=== PATIENT | female | born 1975 | race African-American/Black ===

== ENCOUNTER → 2016-08-24 | Outpatient (CLI) | payer OTHER ==
--- NOTE | 2016-08-24 13:43 | RAD ---
Indication chronic back pain. AP and lateral views of the lumbar spine were obtained as well as a coned view targeted to the lumbosacral junction. There are degenerative changes at L5-S1. There is disc space narrowing at this level with some associated vacuum disc phenomenon and degenerative endplate changes. No additional finding is seen. Vertebral height and alignment are well maintained. IMPRESSION: Degenerative changes predominantly centered at L5-S1. No acute finding seen
== END | disposition home or self-care (01) ==
LOC: RAD 13:05
PROVIDERS: ATTEND Surgery
DX: M47.897 Other spondylosis, lumbosacral region (principal); G89.29 Other chronic pain
CPT/HCPCS: 72100

== ENCOUNTER → 2016-09-01 | Outpatient (CLI) | payer OTHER ==
--- NOTE | 2016-09-01 13:13 | RAD ---
AP standing knees, single view, 09/01/2016: History: Knee pain with limited range of motion AP standing views of both knees demonstrate mild narrowing of the medial compartment of the right knee joint with mild marginal spurring. The left knee joint space is well-preserved. There is a smooth sclerotic focus in the proximal fibula suggesting an old healed fibrous cortical defect or large bone island. No fracture or dislocation is identified on this limited exam.
--- NOTE | 2016-09-01 13:24 | RAD ---
CT lumbar spine without contrast History: Pain, degenerative disc disease at L5-S1. Comparison: None. Technique: Noncontrast helical CT of the lumbar spine was performed. Axial, sagittal, and coronal reconstructions were obtained. One or more of the following individualized dose reduction techniques were utilized for the study: Automated exposure control Adjustment of mA and/or kV according to patient's size Use of iterative reconstruction technique. Findings: Evaluation of spinal contents is limited by lack of intrathecal contrast. Alignment of the lumbar spine appears anatomic. There is no evidence of acute fracture or acute malalignment. No prevertebral soft tissue swelling is identified. There are 5 lumbar type vertebral bodies. L2-3 level demonstrates mild buckling ligamentum flavum and mild bilateral facet hypertrophy. L3-4 level demonstrates mild bilateral facet hypertrophy and mild buckling ligamentum flavum. L4-5 level demonstrates a small central posterior disc osteophyte complex. There is mild bilateral facet hypertrophy and mild buckling of ligamentum flavum. Minimal bilateral neural foraminal narrowing is seen. Degenerative changes combined with mild enlargement of posterior epidural fat create mild central spinal canal narrowing with the AP diameter of the thecal sac estimated at 9 mm. L5-S1 level demonstrates loss of disc height and vacuum disc phenomenon. There is a posterior disc osteophyte complex asymmetric to the left. There is mild bilateral facet hypertrophy and mild buckling ligamentum flavum. There is mild right and mild-moderate left neural foraminal narrowing. Degenerative changes combined with enlargement of the posterior epidural fat create mild spinal canal narrowing with AP diameter of the thecal sac estimated at 9 mm. Impression: 1. Degenerative changes, most evident at L4-5 and L5-S1 where there is mild spinal canal narrowing. 2. Mild-moderate left and mild right neural foraminal narrowing is seen at L5-S1. Lesser neural foraminal narrowing is seen at L4-5.
== END | disposition home or self-care (01) ==
LOC: CT 12:06
PROVIDERS: ATTEND Family Medicine
DX: M51.37 Other intervertebral disc degeneration, lumbosacral region (principal); M25.561 Pain in right knee; M25.562 Pain in left knee
CPT/HCPCS: 72131; 73565

== ENCOUNTER 2016-11-07 19:32 | Emergency (ER) | payer OTHER ==
[~2016-11-07] VITALS: Ht 167.6 cm; Wt 88.5 kg
[2016-11-07 19:41] VITALS: BP 134/74
--- NOTE | 2016-11-07 20:09 | PHYS DOC ---
Past Medical History Past Medical History: Other Additional Past Medical Histor: CHRONIC BACK PAIN, CHRONIC BILATERAL KNEE PAIN Past Surgical History: , Other Additional Past Surgical Histo: R HAND SX Alcohol Use: None Drug Use: Marijuana Adult General Chief Complaint Chief Complaint: BACK PAIN - NO INJURY HPI HPI Patient is a 41 year old female with history of chronic sciatic pain who presents today with moderate chronic bilateral low back pain radiating to the right knee. She states she has history of chronic knee pain bilaterally. Patient herself states they've done bilateral knee x-rays which were negative by her PCP. She states the PCP has done CTs of her lumbar spine which were noted for sciatica and lumbar stenosis. Denies any loss of bowel or bladder function. She appears and stop intoxicated. She is very slow in her speech. As well speak i asked patient if she has any injury. Patient states she has no injury. I stated if there is no injury we could do x-rays to make sure nothing acute is going on but xrays are not indicated if no injury is available. Patient states she has no injury and we refusing to care for her. Informed patient we are not refusing to care for her by asking all these questions. Informed her the questions are to help figure out what we can do for he eg. tests or pain management. Informed her if her own doctor has done x-rays of her knees and CT of her back and there was nothing acute we can help her with pain. Informed her at this point we can help her with the pain. She stood up stating she is living with not helping. I asked her if she would like something for pain. She states she is already taking oxycodone 10 mg/325 with no relief. She states she is here to see the who is on the cardiac floor. Informed patient its 8:05 PM, informed her visiting hours will be done by 8:30. Informed that can help her with her pain but she has to bring a sprinkler truck driver for narcotics because she came to the ED by herself. She states she is going to make a couple calls to see if anyone can pick her up. She did call the father who did not agree to pick her up. Patient stated "forget about the pain medicine". Informed patient that we can give her a steroid pain shot or Toradol and see if this helps. Patient refused, she states the last time she took steroids she gained 25 pounds and she is not ready for that. Informed her I can give her a shot of Toradol. She is up and walking in the room stating she is going to the cardiac floor to see her"baby" security had been called and was standing by for a while. Patient seemed to calm down as soon as she saw security. PCP Dr. Win Review of Systems Review of Systems Constitutional: Denies fever or chills [] Eyes: Denies change in visual acuity, redness, or eye pain [] : Denies dysuria or hematuria [] Musculoskeletal: chronic back pain and knee pain Integument: Denies rash or skin lesions [] Neurologic: Denies headache, focal weakness or sensory changes [] Endocrine: Denies polyuria or polydipsia [] Allergies Allergies Allergies Coded Allergies Type Severity Reaction Last Updated Verified Penicillins Allergy Unknown Unknown 07/28/14 No Physical Exam Physical Exam Constitutional: Well developed, well nourished, no acute distress, non-toxic appearance. [] HENT: Normocephalic, atraumatic, bilateral external ears normal, oropharynx moist, no oral exudates, nose normal. [] Skin: Warm, dry, no erythema, no rash. [] Back: Exam not done patient up passing around the room. Extremities: No tenderness, no cyanosis, no clubbing, ROM intact, no edema. [] Neurologic: Alert and oriented X 3, normal motor function, normal sensory function, no focal deficits noted. [] Psychologic: Affect normal, judgement normal, mood normal. [] Current Patient Data Vital Signs Vital Signs Date Time Temp Pulse Resp B/P (MAP) Pulse Ox O2 Delivery O2 Flow Rate FiO2 11/07/16 19:41 99.0 91 16 98 Room Air 99.0 EKG EKG [] Radiology/Procedures Radiology/Procedures [] Course & Med Decision Making Course & Med Decision Making Pertinent Labs and Imaging studies reviewed. (See chart for details) Please see history of present illness for all the information. Dragon Disclaimer Dragon Disclaimer This electronic medical record was generated, in whole or in part, using a voice recognition dictation system. Departure Departure Impression: Primary Impression: Back pain Additional Impressions: Sciatica of right side Sciatica of left side Chronic knee pain Disposition: 01 HOME, SELF-CARE Condition: STABLE Referrals: WINNIE WIN MD (PCP) Problem Qualifiers Primary Impression: Back pain Back pain location: low back pain Chronicity: chronic Back pain laterality : right Sciatica presence: with sciatica Sciatica laterality: bilateral sciatica Qualified Codes: M54.41 - Lumbago with sciatica, right side; M54.42 - Lumbago with sciatica, left side; G89.29 - Other chronic pain Additional Impressions: Chronic knee pain Laterality: bilateral Qualified Codes: M25.561 - Pain in right knee; M25.562 - Pain in left knee; G89.29 - Other chronic pain TAI CONKLIN APRN Nov 07, 2016 20:09
== END 2016-11-07 20:12 | disposition home or self-care (01) ==
LOC: ER 19:32
DX: G89.29 Other chronic pain (principal); M54.41 Lumbago with sciatica, right side; M54.42 Lumbago with sciatica, left side; M25.561 Pain in right knee; F12.10 Cannabis abuse, uncomplicated; M48.06 Spinal stenosis, lumbar region; Z98.890 Other specified postprocedural states; Z88.0 Allergy status to penicillin
CPT/HCPCS: 99281

== ENCOUNTER 2016-11-10 11:30 | Emergency (ER) | payer OTHER ==
[~2016-11-10] VITALS: Ht 167.6 cm; Wt 88.5 kg
[2016-11-10 11:45] VITALS: BP 135/78
--- NOTE | 2016-11-10 12:10 | PHYS DOC ---
Past Medical History Past Medical History: Other Additional Past Medical Histor: CHRONIC BACK PAIN, CHRONIC BILATERAL KNEE PAIN Past Surgical History: , Other Additional Past Surgical Histo: R HAND SX Alcohol Use: None Drug Use: Marijuana Adult General Chief Complaint Chief Complaint: LOWER EXT PAIN HPI HPI Patient is a 41 year old female presents to the emergency department stating that she has having left lower back pain that radiates down into her knee area. Patient was seen here on November 07 for the same discomfort. Patient denies any trauma or injuries. Patient states that she has hardly able to walk. She states that she does have a prescription of oxycodone 10 mg in which is not helping with her pain or discomfort. Patient states that the pain radiates from her right left lower back although way down to her knee area. Patient states that the emergency department is not helping her with her pain and discomfort. She does state she has chronic back pain. Patient states that she does not have a primary care physician that she has seen. I explained that she gets her oxycodone from a primary care physician in which she states that she does not have a primary care physician in that is not where she gets her oxycodone. Therefore I asked the patient then issue buying them off the streets. Patient states no eye do not by them off the street you don't have any idea how I get my pain medications. Patient was offered ibuprofen 800 mg and Flexeril here in the emergency department to help with muscle spasms. Patient states I have those prescriptions at home however she had not provided me with this information when asked what she is taken for the pain and discomfort. Patient continues to state that she believes we think she is drug-seeking. I explained to patient that we treat back pain the same with nonsteroidal anti- inflammatories and muscle relaxers with a possibility of steroids as well. Patient continues to state that she does not feel that she is being treated appropriately she has therefore gotten up off of the chair in the room and proceeds to walk around the room. She then proceeds to walk out the front door stating that we are not helping her and she does not understand why we cannot provide her with the medication that the provider on the fourth was going to give her. After looking back in the chart provider at that time was going to provide her with a shot of Toradol and steroids. Patient was able to ambulate out of the department with a good steady gait. Review of Systems Review of Systems Constitutional: Denies fever or chills [] Eyes: Denies change in visual acuity, redness, or eye pain [] HENT: Denies nasal congestion or sore throat [] Respiratory: Denies cough or shortness of breath [] Cardiovascular: No additional information not addressed in HPI [] GI: Denies abdominal pain, nausea, vomiting, bloody stools or diarrhea [] : Denies dysuria or hematuria [] Musculoskeletal: back pain denies joint pain [] Integument: Denies rash or skin lesions [] Neurologic: Denies headache, focal weakness or sensory changes [] Endocrine: Denies polyuria or polydipsia [] Allergies Allergies Allergies Coded Allergies Type Severity Reaction Last Updated Verified Penicillins Allergy Unknown Unknown 07/28/14 No Physical Exam Physical Exam Constitutional: Well developed, well nourished, no acute distress, non-toxic appearance. [] HENT: Normocephalic, atraumatic, bilateral external ears normal, oropharynx moist, no oral exudates, nose normal. [] Eyes: PERRLA, EOMI, conjunctiva normal, no discharge. [] Neck: Normal range of motion, no tenderness, supple, no stridor. [] Cardiovascular:Heart rate regular rhythm] Lungs & Thorax: no respiratory distress Skin: Warm, dry, no erythema, no rash. [] Back: No tenderness Extremities: No tenderness, no cyanosis, no clubbing, ROM intact, no edema. Peripheral pulses 2+, cap refill brisk < 2 seconds Neurologic: Alert and oriented X 3, normal motor function, normal sensory function, no focal deficits noted. [] Psychologic: Affect normal, judgement normal, mood normal. [] EKG EKG [] Radiology/Procedures Radiology/Procedures [] Course & Med Decision Making Course & Med Decision Making Pertinent Labs and Imaging studies reviewed. (See chart for details) Patient was offered medication in which she refuses stating she has taken them at home. Patient has then eloped from the department without further treatment being obtained. [] Dragon Disclaimer Dragon Disclaimer This electronic medical record was generated, in whole or in part, using a voice recognition dictation system. Departure Departure Impression: Primary Impression: Chronic back pain Additional Impression: Sciatica of right side Disposition: HOME, SELF-CARE Condition: STABLE Referrals: WINNIE WIN MD (PCP) Problem Qualifiers JHOAN SOLORZANO CERTIFIED PUBLIC ACCOUNTANT Nov 10, 2016 12:10
== END 2016-11-10 12:03 | disposition home or self-care (01) ==
LOC: ER 11:30
DX: G89.29 Other chronic pain (principal); M54.41 Lumbago with sciatica, right side; Z88.0 Allergy status to penicillin
CPT/HCPCS: 99281

== ENCOUNTER 2017-08-23 21:06 | Emergency (ER) | payer OTHER | END 2017-08-23 22:01 | disposition home or self-care (01) | LOC: ER 21:06 | DX: S80.02XA Contusion of left knee, initial encounter (principal); M54.42 Lumbago with sciatica, left side; G89.29 Other chronic pain; F12.10 Cannabis abuse, uncomplicated; Z88.0 Allergy status to penicillin; W22.03XA Walked into furniture, initial encounter; Y93.89 Activity, other specified; Y99.8 Other external cause status; Y92.89 Other specified places as the place of occurrence of the external cause | CPT/HCPCS: 73562; 99284 ==

== ENCOUNTER 2018-12-11 05:43 | Emergency (ER) | payer MEDICAID, OTHER ==
[~2018-12-11] VITALS: Ht 175.3 cm; Wt 88.5 kg
[~2018-12-11 05:43] MED LIST: PRED50TA PO
[2018-12-11 06:00] VITALS: BP 164/119
--- NOTE | 2018-12-11 06:36 | PHYS DOC ---
Past Medical History Past Medical History: No Pertinent History, Other Additional Past Medical Histor: CHRONIC BACK PAIN, CHRONIC BILATERAL KNEE PAIN Past Surgical History: , Other Additional Past Surgical Histo: R HAND SX Alcohol Use: None Drug Use: Marijuana Adult General Chief Complaint Chief Complaint: ANXIETY/PANIC ATTACK HPI HPI 43-year-old female who presents emergency department after her had a deterioration in the hospital. She has anxiety and is having a hard time calming down. She denies any pain. She denies fevers or chills.onset today. location generalized. duration constant. no alleviating factors. no si/hi. PMH: none PSH: denies ROS neg for cp, soa, n/v. All other review of systems is negative unless otherwise noted in history of present illness. ED course: 43 YO F with anxiety given ativan in the ED. she improved from the emergency department and was feeling much better. We then discharged her. Review of Systems Review of Systems SEE ABOVE. Current Medications Current Medications Current Medications Medications (Trade) Dose Ordered Sig/Joe Start Time Stop Time Status Last Admin Dose Admin Lorazepam (Ativan) 0.5 mg 1X ONCE 12/11/18 07:00 12/11/18 07:01 12/11/18 06:38 0.5 MG Allergies Allergies Allergies Coded Allergies Type Severity Reaction Last Updated Verified Penicillins Allergy Intermediate 12/11/18 No Physical Exam Physical Exam SEE ABOVE Constitutional: Well developed, well nourished, no acute distress, non-toxic appearance. [] HENT: Normocephalic, atraumatic, bilateral external ears normal, oropharynx moist, no oral exudates, nose normal. [] Eyes: PERRLA, EOMI, conjunctiva normal, no discharge. [] Neck: Normal range of motion, no tenderness, supple, no stridor. [] Cardiovascular:Heart rate regular rhythm, no murmur [] Lungs & Thorax: Bilateral breath sounds clear to auscultation [] Abdomen: Bowel sounds normal, soft, no tenderness, no masses, no pulsatile masses. [] Skin: Warm, dry, no erythema, no rash. [] Back: No tenderness, no CVA tenderness. [] Extremities: No tenderness, no cyanosis, no clubbing, ROM intact, no edema. [] Neurologic: Alert and oriented X 3, normal motor function, normal sensory function, no focal deficits noted. [] Psychologic: Affect normal, judgement normal, mood normal. [] Current Patient Data Vital Signs Vital Signs Date Time Temp Pulse Resp B/P (MAP) Pulse Ox O2 Delivery O2 Flow Rate FiO2 12/11/18 06:00 98.3 69 20 164/119 (134) 97 Room Air 98.3 EKG EKG [] Radiology/Procedures Radiology/Procedures [] Course & Med Decision Making Course & Med Decision Making Pertinent Labs and Imaging studies reviewed. (See chart for details) [] Dragon Disclaimer Dragon Disclaimer This electronic medical record was generated, in whole or in part, using a voice recognition dictation system. Departure Departure Impression: Primary Impression: Anxiety Disposition: HOME, SELF-CARE Condition: STABLE Referrals: NO PCP (PCP) Patient Instructions: Anxiety and Panic Attacks, [id number] Additional Instructions: Thank you for allowing us to participate in your care today. Return to the emergency department you have any new or worsening symptoms, or if you are concerned for any reason. Return to emergency department if you have any new or concerning symptoms including but not limited to fever, chills, nausea, vomiting, intractable pain, any new rashes, chest pain, shortness of air, uncontrolled bleeding, difficulty breathing, and/or vision loss. Follow up with your primary care physician within 1-2 days. Call your Primary Doctor tomorrow and inform them of your visit today. If you do not have a primary care provider we are happy to provide you with a list of our primary care providers contact information. This condition should be evaluated by your primary care physician and any recommended consulting services for continued management within 2 days after discharge. If at any time, you are having difficulty getting into your primary care doctor or a specialist, return to the emergency department. DAMARIS THOMAS MD Dec 11, 2018 06:36
[2018-12-11] MEDS ORDERED: LORazepam 0.5 MG TABLET PO ONE (07:00)
== END 2018-12-11 06:50 | disposition home or self-care (01) ==
LOC: ER 05:43
DX: F41.9 Anxiety disorder, unspecified (principal); G89.29 Other chronic pain; Z98.890 Other specified postprocedural states; Z88.0 Allergy status to penicillin
CPT/HCPCS: 99284